=== PATIENT | female | born 1995 | race Caucasian/White ===

== ENCOUNTER 2024-11-22 03:37 | Emergency (ER) | payer SELFPAY ==
[2024-11-22 03:43] VITALS: BP 95/57
[2024-11-22 03:45] VITALS: BP 95/57
[2024-11-22] MEDS: ZOFRAN ODT (ORALLY DISINTEGRATING) 4 MG PO ×2 (03:47→04:41)
[2024-11-22 03:49] VITALS: BMI 21.6
[2024-11-22 04:00] VITALS: BP 89/53
--- NOTE | 2024-11-22 04:02 | EDRN ---
When pt is sober and ready for discharge we can call friends Jt Gtz @ [phone] or Barbara Germain @ [phone]
--- NOTE | 2024-11-22 05:22 | ED.GENMED ---
History of Present Illness
General
Chief Complaint: Alcohol Problem
Source: patient and ambulance crew
Exam Limitations: clinical condition
Time Seen by Provider: 11/22/24 03:43
Nursing documentation reviewed up to this point in time: agreed with
History of Present Illness
History of Present Illness:
This is a 29-year-old woman who was attending a wedding tonight apparently admits to significant alcohol consumption. She and other family members are staying at a local hotel and she arrives via EMS due to alcohol intoxication accompanied with
several episodes of nausea and vomiting. She does admit to taking a dose of Ambien tonight which she takes on a nightly basis.
No reported falls or injuries.
EMS attempted to establish IV but patient promptly removed IV catheter and has been refusing further IV access.
She arrives to the ED intoxicated, poorly cooperative but purposeful. She denies medication allergies and she is agreeable to an oral dose of Zofran.
She resides in [place].
A friend has accompanied. Friend reports no significant past medical history. No allergies.
Past History
Past History
ED Past Medical History: None
Social History
Alcohol: Occasional
Drug: None
Personal: Single
Phy Exam
Physical Exam
Physical Exam:
GENERAL: 29-year-old woman appears her stated age. Appears moderately intoxicated. Poorly cooperative but purposeful. Repositions herself on the bed with ease.
EYE: pupils equal and reactive. anicteric. The head is normocephalic, atraumatic.
NECK: Supple, nontender, no meningismus, no significant adenopathy.
ENT: posterior pharynx is clear, oral mucosa is minimally dry. No rhinorrhea.
CARDIAC: Regular rate and rhythm. no murmur.
LUNGS: Clear breath sounds bilaterally, no acute respiratory distress, no wheezes/rales/rhonchi
ABDOMEN: Soft, nondistended, without focal tenderness, normoactive BS.
NEUROLOGICAL: Intoxicated. Poorly cooperative. No focal neurodeficits. Moving all extremities well.
SKIN: Warm and dry, normal color, skin intact. No rash.
MUSCULOSKELETAL: No C/C/E. peripheral pulses are full and equal b/l. No palpable tenderness.
PSYCH: Intoxicated. Poorly cooperative.
Scores
Withdrawal Assessment of Alcohol
Withdrawal Assessment Completed?: Not applicable
Course
Orders/Labs/Results
Orders:
Orders
11/22/24 03:44
Ondansetron Orally Disint [Zofran Odt (Orally Disintegrating)] 4 mg PO NOW STA
11/22/24 04:41
Ondansetron Orally Disint [Zofran Odt (Orally Disintegrating)] 4 mg PO NOW STA
Vital Signs
Initial and Last Documented VS:
Initial Vital Signs
Temp Pulse Resp BP Pulse Ox
96.9 F L 74 16 95/57 99
11/22/24 03:43 11/22/24 03:43 11/22/24 03:43 11/22/24 03:43 11/22/24 03:43
Last Documented Vital Signs
Temp Pulse Resp BP Pulse Ox
96.9 F L 74 16 89/53 100
11/22/24 03:43 11/22/24 04:00 11/22/24 04:00 11/22/24 04:00 11/22/24 04:00
MDM/Problems Addressed
Differential Diagnosis Includes:
Patient arrives to the ED significantly intoxicated but handling secretions well. No respiratory compromise. Nothing to suggest aspiration.
Poorly cooperative and continues to refuse IV access.
She is agreeable to oral dose of Zofran.
Will continue cardiac technologist, pulse ox.
*Pulse Oximetry
Patient hypoxic: no
*Registered Vascular Technologist (Rvt) Interpretation
Rate: normal
Interpretation: normal
Rhythm: sinus
*Critical Care Note
Total Time (30-74mins, 75-104mins- exclusive of procedures): Not Applicable
Update Note
Update Note:
06:55
pt is now awake, alert, ambulatory
no further N/V
will d/c to home
Recommend she abstain from further ETOH, at least over the next few days
ED Attending Note
-
Portions of this chart may have been created with voice recognition software.� Occasional wrong word or��sound alike� substitutions may have occurred due to the inherent limitations of voice recognition software.
Discharge Plan
Departure
Patient Disposition: Home (Routine Discharge)
Date of Disposition: 11/22/24
Time of Disposition: 07:01
Patient with high blood pressure during this ER visit?: No
Condition: Good
Discharge Problem:
Alcohol intoxication
Instructions: Alcohol Poisoning (DC)
Prescriptions:
No Action
Unobtainable
0
Interventions
Interventions:
*Risk Screen - Suicide Last Done: 11/22/24 03:50
*General Assessment Last Done: 11/22/24 03:50
*Neglect/Abuse Screening Last Done: 11/22/24 03:50
*ED- Fall Risk Assessment Last Done: 11/22/24 03:50
*ED COVID-19 Vaccine History Last Done: 11/22/24 03:50
ED- Neurological Assessment Last Done: 11/22/24 03:54
ED-Psychological Assessment Last Done: 11/22/24 03:54
Discharge Date and Time
Print Language: FILIPINO
[2024-11-22 07:09] VITALS: BP 102/60
== END 2024-11-22 07:06 | disposition home or self-care (01) ==
LOC: EMR 03:37
PROVIDERS: EMERGENCY PHYSICIAN Emergency Medicine
DX: F10.129 Alcohol abuse with intoxication, unspecified (principal); R11.2 Nausea with vomiting, unspecified
CPT/HCPCS: 99283